=== PATIENT | female | born 1985 | race African-American/Black ===

== ENCOUNTER 2017-05-30 16:26 | Emergency (ER) | payer MEDICAID ==
[~2017-05-30] VITALS: Ht 165.1 cm; Wt 120.0 kg
[~2017-05-30 16:26] MED LIST: PREN-88
[2017-05-30] MEDS ORDERED: CIPROFLOXACIN (16:34)
[2017-05-30] MEDS ORDERED: TETRACAINE 0.5% OPHTH DROPS 4ML OP ONE (19:30)
[2017-05-30] MEDS ORDERED: KETOROLAC 60MG/2ML VIAL IM ONE (19:30)
[2017-05-30] MEDS ORDERED: FLUORESCEIN SODIUM 1MG/STRIP OP ONE (19:30)
[2017-05-30 22:31] VITALS: BP 139/87
== END 2017-05-30 22:34 | disposition home or self-care (01) ==
LOC: ER 16:41
DX: J01.90 Acute sinusitis, unspecified (principal); B99.9 Unspecified infectious disease; H10.89 Other conjunctivitis
CPT/HCPCS: 96372; 99283; J1885; Z7610

== ENCOUNTER 2018-07-10 18:41 | Emergency (ER) | payer MEDICAID ==
[~2018-07-10] VITALS: Ht 172.7 cm; Wt 150.0 kg
[~2018-07-10 18:41] MED LIST changes: +CIPROFLOXACIN
[2018-07-10] MEDS ORDERED: SODIUM CHLORIDE 0.9% 1,000 ML IV ONE (19:42)
[2018-07-10] MEDS ORDERED: KETOROLAC 30MG/ML VIAL IV STA (19:42)
[2018-07-10] MEDS ORDERED: ACETAMINOPHEN 325MG TABLET PO STA (19:42)
[2018-07-10 20:47] LABS: BASOPHILS % 0.4 % (0.0-2.0); EOSINOPHILS % 2.2 % (0.0-5.0); HEMATOCRIT. 44.5 % (36.0-48.0); HEMOGLOBIN. 14.8 g/dL (12.0-16.0); LYMPHOCYTES % 33.3 % (20.0-50.0); MEAN CORPUSCULAR HEMOGLOBIN 27.8 pg (28.0-32.0); MEAN CORPUSCULAR VOLUME 83.5 fL (81.0-99.0); MEAN PLATELET VOLUME 9.4 fl (7.4-10.4); MONOCYTES % 5.6 % (2.0-8.0); NEUTROPHILS % 58.5 % (40.0-76.0); PLATELET 270 x1000/uL (130-400); RED BLOOD CELL COUNT 5.33 mill/uL (4.2-5.4); RED CELL DISTRIBUTION WIDTH 14.4 % (11.6-14.6)
[2018-07-10 20:49] LABS: HCG SCREEN NEGATIVE
[2018-07-10 20:51] LABS: CHLORIDE 100 mEq/L (98-107)
[2018-07-10 20:52] LABS: PROTHROMBIN TIME 10.1 sec (9.1-11.1)
[2018-07-10 21:05] LABS: CLARITY URINE CLEAR (CLEAR); COLOR URINE YELLOW (YELLOW); KETONES URINE NEGATIVE (NEGATIVE); LEUKOCYTE ESTERASE URINE TRACE (NEGATIVE); NITRITE URINE NEGATIVE (NEGATIVE); OCCULT BLOOD URINE TRACE (NEGATIVE); PH URINE 5.5 (4.5-8.0); PROTEIN URINE NEGATIVE (NEGATIVE); UROBILINOGEN URINE 0.2 E.U./dL (0.2-1.0)
[2018-07-10] MEDS ORDERED: PREDNISONE 20MG TABLET PO ONE (23:15)
[2018-07-10] MEDS ORDERED: LEVOFLOXACIN 500MG TABLET PO ONE (23:15)
[2018-07-11 02:01] VITALS: BP 150/73
== END 2018-07-11 03:10 | disposition home or self-care (01) ==
LOC: ER 18:41
DX: J40 Bronchitis, not specified as acute or chronic (principal); N39.0 Urinary tract infection, site not specified; F17.200 Nicotine dependence, unspecified, uncomplicated; R00.0 Tachycardia, unspecified; R03.0 Elevated blood-pressure reading, without diagnosis of hypertension; E66.9 Obesity, unspecified; Z68.43 Body mass index [BMI] 50.0-59.9, adult; Z98.890 Other specified postprocedural states
CPT/HCPCS: 36415; 71045; 80053; 81003; 81025; 83605; 84145; 84484; 84703; 85025; 85610; 87040; 87086; 87804; 93005; 96374; 99284; J1885; J7030; J7512

== ENCOUNTER 2019-05-16 17:16 | Emergency (ER) | payer MEDICAID ==
[~2019-05-16] VITALS: Ht 180.3 cm; Wt 140.0 kg
[2019-05-16] MEDS ORDERED: SODIUM CHLORIDE 0.9% 1,000 ML IV ONE (17:42)
[2019-05-16 18:13] LABS: CLARITY URINE CLEAR (CLEAR); COLOR URINE YELLOW (YELLOW); KETONES URINE NEGATIVE (NEGATIVE); LEUKOCYTE ESTERASE URINE NEGATIVE (NEGATIVE); NITRITE URINE NEGATIVE (NEGATIVE); OCCULT BLOOD URINE 2+ (NEGATIVE); PROTEIN URINE NEGATIVE (NEGATIVE); SPECIFIC GRAVITY URINE 1.013 (1.005-1.030); UROBILINOGEN URINE 0.2 E.U./dL (0.2-1.0)
[2019-05-16 19:03] LABS: BASOPHILS % 0.7 % (0.0-2.0); EOSINOPHILS % 3.2 % (0.0-5.0); HEMATOCRIT. 37.2 % (36.0-48.0); HEMOGLOBIN. 12.2 g/dL (12.0-16.0); LYMPHOCYTES % 38.7 % (20.0-50.0); MEAN CORPUSCULAR HEMOGLOBIN 27.5 pg (28.0-32.0); MEAN CORPUSCULAR VOLUME 83.6 fL (81.0-99.0); MEAN PLATELET VOLUME 9.3 fl (7.4-10.4); MONOCYTES % 6.5 % (2.0-8.0); NEUTROPHILS % 50.9 % (40.0-76.0); PLATELET 278 x1000/uL (130-400); RED BLOOD CELL COUNT 4.45 mill/uL (4.2-5.4); RED CELL DISTRIBUTION WIDTH 14.8 % (11.6-14.6)
[2019-05-16 19:05] LABS: CHLORIDE 105 mEq/L (98-107)
[2019-05-16 19:15] LABS: B-HCG QUANTITATIVE < 1 mIU/mL (<3)
[2019-05-16] MEDS ORDERED: ACETAMINOPHEN WITH CODEINE 300/30MG TABLET PO ONE (19:15)
[2019-05-16 20:23] VITALS: BP 143/72
== END 2019-05-16 20:52 | disposition home or self-care (01) ==
LOC: ER 17:16
DX: N93.8 Other specified abnormal uterine and vaginal bleeding (principal)
CPT/HCPCS: 36415; 76830; 76856; 80053; 81003; 81025; 84702; 85025; 86850; 86900; 86901; 99284; J7030

== ENCOUNTER 2019-09-03 17:58 | Emergency (ER) | payer MEDICAID | END 2019-09-03 19:24 | disposition left against medical advice (07) | LOC: ER 17:58 | DX: Z53.21 Procedure and treatment not carried out due to patient leaving prior to being seen by health care provider (principal) ==

== ENCOUNTER 2019-09-19 03:28 | Emergency (ER) | payer MEDICAID ==
[~2019-09-19] VITALS: Ht 180.3 cm; Wt 137.0 kg
[2019-09-19 05:44] VITALS: BP 125/58
== END 2019-09-19 06:00 | disposition home or self-care (01) ==
LOC: ER 03:51
DX: J18.9 Pneumonia, unspecified organism (principal); R07.89 Other chest pain; F17.290 Nicotine dependence, other tobacco product, uncomplicated; Z98.890 Other specified postprocedural states
CPT/HCPCS: 71045; 82962; 87804; 93005; 99284; Z7610

== ENCOUNTER 2019-09-22 21:12 | Inpatient (IN) | payer MEDICAID ==
[~2019-09-22] VITALS: Ht 180.3 cm; Wt 139.7 kg
[2019-09-22] MEDS ORDERED: ACETAMINOPHEN 325MG TABLET PO STA (23:46)
[2019-09-22] MEDS ORDERED: SODIUM CHLORIDE 0.9% 1,000 ML IV ONE (23:46)
[2019-09-23] MEDS ORDERED: CEFTRIAXONE 1 G PREMIX 50 ML IV ONE
[2019-09-23] MEDS ORDERED: AZITHROMYCIN 500 MG in DEXT 5% WATER 250 ML IV ONE ×2
[2019-09-23 00:17] LABS: BASOPHILS % 0.6 % (0.0-2.0); EOSINOPHILS % 4.5 % (0.0-5.0); HEMATOCRIT. 39.7 % (36.0-48.0); HEMOGLOBIN. 12.8 g/dL (12.0-16.0); LYMPHOCYTES % 62.5 % (20.0-50.0); MEAN CORPUSCULAR HEMOGLOBIN 26.7 pg (28.0-32.0); MEAN CORPUSCULAR VOLUME 82.6 fL (81.0-99.0); MEAN PLATELET VOLUME 9.2 fl (7.4-10.4); MONOCYTES % 7.1 % (2.0-8.0); NEUTROPHILS % 25.3 % (40.0-76.0); PLATELET 243 x1000/uL (130-400); RED BLOOD CELL COUNT 4.81 mill/uL (4.2-5.4); RED CELL DISTRIBUTION WIDTH 13.9 % (11.6-14.6)
[2019-09-23 00:45] LABS: CHLORIDE 106 mEq/L (98-107)
[2019-09-23 01:21] LABS: BG BASE EXCESS 0.9 mmol/L (-2.0-2.0); BG CARBOXYHEMOGLOBIN 1.8 % (0.5-1.5); BG DEOXYHEMOGLOBIN 8.7 % (0.0-5.0); BG FRACTION INSPIRED OXYGEN 21; BG OXYGEN SATURATION 91.1 % (92.0-98.5); BG OXYHEMOGLOBIN 89.5 % (94.0-97.0); BG PCO2 43.4 mmHg (35.0-45.0); BG PH 7.395 (7.350-7.450); BG SAMPLE SITE RIGHT BRACHIAL; BG TOTAL HEMOGLOBIN 12.3 g/dL (12.0-18.0); BG VENT MODE ROOM AIR
[2019-09-23 03:48] LABS: CLARITY URINE CLOUDY (CLEAR); COLOR URINE YELLOW (YELLOW); KETONES URINE NEGATIVE (NEGATIVE); LEUKOCYTE ESTERASE URINE TRACE (NEGATIVE); NITRITE URINE NEGATIVE (NEGATIVE); OCCULT BLOOD URINE 3+ (NEGATIVE); PH URINE 5.5 (4.5-8.0); PROTEIN URINE NEGATIVE (NEGATIVE); SPECIFIC GRAVITY URINE 1.021 (1.005-1.030); UROBILINOGEN URINE 0.2 E.U./dL (0.2-1.0)
[2019-09-23 04:00] LABS: *AMPHETAMINES SCREEN URINE NEGATIVE (NEGATIVE); *BARBITURATES SCREEN URINE NEGATIVE (NEGATIVE); *BENZODIAZEPINES SCREEN URINE NEGATIVE (NEGATIVE); *COCAINE SCREEN URINE NEGATIVE (NEGATIVE)
[2019-09-23 04:01] LABS: CANNABINOID URINE SCREEN NEGATIVE (NEGATIVE); METHADONE URINE SCREEN NEGATIVE (NEGATIVE); OPIATES URINE SCREEN NEGATIVE (NEGATIVE); PHENCYCLIDINE URINE SCREEN NEGATIVE (NEGATIVE)
[2019-09-23] MEDS ORDERED: LORAZEPAM 0.5MG TABLET PO PRN (09:00)
[2019-09-23] MEDS ORDERED: ONDANSETRON HCL 4MG/2ML INJ IV PRN (09:00)
[2019-09-23] MEDS ORDERED: AZITHROMYCIN 500 MG in DEXT 5% WATER 250 ML IV SCH (09:00)
[2019-09-23] MEDS ORDERED: CEFTRIAXONE 1 G PREMIX 50 ML IV SCH (09:00)
[2019-09-23] MEDS ORDERED: CLONIDINE 0.1MG TABLET PO PRN (09:00)
[2019-09-23] MEDS ORDERED: DOCUSATE SODIUM 100MG CAPSULE PO PRN (09:00)
[2019-09-23] MEDS ORDERED: GUAIFENESIN 200MG/10ML SUGAR FREE UDC PO PRN (09:00)
[2019-09-23] MEDS ORDERED: ACETAMINOPHEN 325MG TABLET PO PRN (09:00)
[2019-09-23] MEDS: SODIUM CHLORIDE 0.9% 1,000 ML IV SCH (16:38)
[2019-09-23] MEDS: LISINOPRIL 5MG TABLET PO SCH (17:10)
[2019-09-23 17:20] LABS: HCG SCREEN NEGATIVE
[2019-09-23 22:00] VITALS: BP 148/77
[2019-09-23] MEDS: HYDROCODONE/ACETAMINOPHEN 5/325MG TABLET PO PRN (22:12)
[2019-09-23] MEDS: IPRATROPIUM/ALBUTEROL 0.5-3(2.5)MG/3ML NEB HHN PRN (22:38)
[2019-09-24] VITALS: BP 148/77
[2019-09-24] MEDS: SODIUM CHLORIDE 0.9% 1,000 ML IV SCH ×2 (00:29→12:15)
[2019-09-24] MEDS: CEFTRIAXONE 1 G PREMIX 50 ML IV SCH ×2 (00:29→23:43)
[2019-09-24] MEDS: AZITHROMYCIN 500 MG in DEXT 5% WATER 250 ML IV SCH (01:36)
[2019-09-24 04:00] VITALS: BP 122/66
[2019-09-24 07:31] LABS: BASOPHILS % 0.3 % (0.0-2.0); EOSINOPHILS % 3.5 % (0.0-5.0); HEMATOCRIT. 36.8 % (36.0-48.0); HEMOGLOBIN. 12.2 g/dL (12.0-16.0); LYMPHOCYTES % 60.9 % (20.0-50.0); MEAN CORPUSCULAR HEMOGLOBIN 27.5 pg (28.0-32.0); MEAN CORPUSCULAR VOLUME 82.7 fL (81.0-99.0); MEAN PLATELET VOLUME 9.7 fl (7.4-10.4); NEUTROPHILS % 27.3 % (40.0-76.0); PLATELET 206 x1000/uL (130-400); RED BLOOD CELL COUNT 4.45 mill/uL (4.2-5.4); RED CELL DISTRIBUTION WIDTH 13.8 % (11.6-14.6)
[2019-09-24 07:47] LABS: CHLORIDE 108 mEq/L (98-107)
[2019-09-24 08:00] VITALS: BP 157/79
[2019-09-24] MEDS ORDERED: PNEUMOCOCCAL 23-VAL P-SAC VAC 0.5 ML IM ONE (08:00)
[2019-09-24] MEDS: IPRATROPIUM/ALBUTEROL 0.5-3(2.5)MG/3ML NEB HHN PRN ×2 (08:54→16:56)
[2019-09-24] MEDS: LISINOPRIL 5MG TABLET PO SCH (08:54)
[2019-09-24] MEDS: HYDROCODONE/ACETAMINOPHEN 5/325MG TABLET PO PRN ×2 (08:55→20:27)
[2019-09-24 12:00] VITALS: BP 140/82
[2019-09-24 16:00] VITALS: BP 144/73
[2019-09-24] MEDS ORDERED: DEXTROSE 50% WATER 50ML SYRINGE IV PRN (17:45)
[2019-09-24] MEDS: INSULIN LISPRO 100 UNITS/ML SUBCUT SCH ×2 (18:18→21:26)
[2019-09-24 20:00] VITALS: BP 129/58
[2019-09-24] MEDS: BLOOD SUGAR DIAGNOSTIC STRIP TEST SCH (21:20)
[2019-09-25] VITALS: BP 113/63
[2019-09-25] MEDS: AZITHROMYCIN 500 MG in DEXT 5% WATER 250 ML IV SCH (01:48)
[2019-09-25] MEDS: SODIUM CHLORIDE 0.9% 1,000 ML IV SCH ×2 (01:49→07:54)
[2019-09-25 04:00] VITALS: BP 152/71
[2019-09-25] MEDS: BLOOD SUGAR DIAGNOSTIC STRIP TEST SCH ×4 (06:46→21:16)
[2019-09-25 06:53] LABS: CHLORIDE 108 mEq/L (98-107)
[2019-09-25] MEDS: LISINOPRIL 5MG TABLET PO SCH (07:50)
[2019-09-25] MEDS: INSULIN LISPRO 100 UNITS/ML SUBCUT SCH ×4 (07:53→21:16)
[2019-09-25 08:00] VITALS: BP 146/73
[2019-09-25] MEDS: IPRATROPIUM/ALBUTEROL 0.5-3(2.5)MG/3ML NEB HHN PRN (09:32)
[2019-09-25 10:11] LABS: BASOPHILS % 0.3 % (0.0-2.0); EOSINOPHILS % 2.6 % (0.0-5.0); HEMATOCRIT. 39.5 % (36.0-48.0); HEMOGLOBIN. 13.5 g/dL (12.0-16.0); LYMPHOCYTES % 47.8 % (20.0-50.0); MEAN CORPUSCULAR HEMOGLOBIN 28.2 pg (28.0-32.0); MEAN PLATELET VOLUME 9.1 fl (7.4-10.4); MONOCYTES % 7.9 % (2.0-8.0); NEUTROPHILS % 41.4 % (40.0-76.0); PLATELET 234 x1000/uL (130-400); RED BLOOD CELL COUNT 4.76 mill/uL (4.2-5.4); RED CELL DISTRIBUTION WIDTH 13.7 % (11.6-14.6)
[2019-09-25] MEDS: HYDROCODONE/ACETAMINOPHEN 5/325MG TABLET PO PRN (10:11)
[2019-09-25 12:00] VITALS: BP 147/84
[2019-09-25] MEDS ORDERED: IPRATROPIUM/ALBUTEROL 0.5-3(2.5)MG/3ML NEB HHN PRN (15:45)
[2019-09-25 16:00] VITALS: BP 151/78
[2019-09-25] MEDS: LORATADINE 10MG TABLET PO SCH (16:50)
[2019-09-25] MEDS ORDERED: MONTELUKAST SODIUM 10MG TABLET PO SCH (17:00)
[2019-09-25] MEDS ORDERED: BUDESONIDE 0.5MG/2ML NEB HHN SCH (18:00)
[2019-09-25 20:00] VITALS: BP 137/76
[2019-09-25] MEDS: FLUTICASONE PROPIONATE 50MCG/SPRAY BOTTLE BOTHNSTRLS SCH (20:39)
[2019-09-25] MEDS: FAMOTIDINE 20MG TABLET PO SCH (20:39)
[2019-09-25] MEDS: IPRATROPIUM/ALBUTEROL 0.5-3(2.5)MG/3ML NEB HHN SCH (20:55)
[2019-09-26] VITALS: BP 121/58
[2019-09-26] MEDS: CEFTRIAXONE 1 G PREMIX 50 ML IV SCH (00:34)
[2019-09-26] MEDS: IPRATROPIUM/ALBUTEROL 0.5-3(2.5)MG/3ML NEB HHN SCH ×2 (01:35→08:30)
[2019-09-26] MEDS: AZITHROMYCIN 500 MG in DEXT 5% WATER 250 ML IV SCH (02:15)
[2019-09-26 04:00] VITALS: BP 123/66
[2019-09-26] MEDS: SODIUM CHLORIDE 0.9% 1,000 ML IV SCH (05:40)
[2019-09-26 06:37] LABS: BASOPHILS % 0.2 % (0.0-2.0); EOSINOPHILS % 2.6 % (0.0-5.0); HEMATOCRIT. 36.4 % (36.0-48.0); HEMOGLOBIN. 12.5 g/dL (12.0-16.0); LYMPHOCYTES % 46.7 % (20.0-50.0); MEAN CORPUSCULAR HEMOGLOBIN 28.3 pg (28.0-32.0); MEAN CORPUSCULAR VOLUME 82.3 fL (81.0-99.0); MEAN PLATELET VOLUME 8.8 fl (7.4-10.4); NEUTROPHILS % 42.5 % (40.0-76.0); PLATELET 230 x1000/uL (130-400); RED BLOOD CELL COUNT 4.42 mill/uL (4.2-5.4); RED CELL DISTRIBUTION WIDTH 13.7 % (11.6-14.6)
[2019-09-26 06:40] LABS: CHLORIDE 107 mEq/L (98-107)
[2019-09-26] MEDS: BLOOD SUGAR DIAGNOSTIC STRIP TEST SCH (07:33)
[2019-09-26] MEDS: INSULIN LISPRO 100 UNITS/ML SUBCUT SCH (07:35)
[2019-09-26 08:00] VITALS: BP 119/74
[2019-09-26] MEDS: FAMOTIDINE 20MG TABLET PO SCH (08:53)
[2019-09-26] MEDS: LORATADINE 10MG TABLET PO SCH (08:53)
[2019-09-26] MEDS: LISINOPRIL 5MG TABLET PO SCH (08:53)
[2019-09-26] MEDS: FLUTICASONE PROPIONATE 50MCG/SPRAY BOTTLE BOTHNSTRLS SCH (08:53)
[2019-09-26 12:00] VITALS: BP_SYST 116; BP_SYST 122; BP_DIAS 79; BP_DIAS 83
== END 2019-09-26 12:41 | disposition home or self-care (01) | DRG 139 ==
LOC: ER 21:12 → 6EST 09-23 02:57 → EDBEDREQSVC 09-23 03:01 → EDBEDREQDT 09-23 03:01 → EDBEDREQTM 09-23 03:01 → EDBEDREQ 09-23 03:01 → ENRESERV 09-23 20:33 → EDBEDREQTM 09-23 20:57 → EDBEDREQSVC 09-23 20:57 → ENRESERV 09-23 21:03
PROVIDERS: ADMIT Internal Medicine; ATTEND Internal Medicine
DX: J18.9 Pneumonia, unspecified organism (principal); J96.01 Acute respiratory failure with hypoxia; Z68.41 Body mass index [BMI] 40.0-44.9, adult; E11.9 Type 2 diabetes mellitus without complications; D72.820 Lymphocytosis (symptomatic); F17.210 Nicotine dependence, cigarettes, uncomplicated; R31.9 Hematuria, unspecified; R82.71 Bacteriuria; J40 Bronchitis, not specified as acute or chronic; J06.9 Acute upper respiratory infection, unspecified; E66.9 Obesity, unspecified; I10 Essential (primary) hypertension; Z98.891 History of uterine scar from previous surgery; Z82.5 Family history of asthma and other chronic lower respiratory diseases; Z87.01 Personal history of pneumonia (recurrent)
CPT/HCPCS: 36415; 36600; 71045; 80048; 80053; 80305; 81003; 81025; 82375; 82805; 82962; 83036; 83605; 83880; 84145; 84484; 84703; 85025; 90732; 93005; 94640; 96361; 96365; 96367; 99285; J0456; J0696; J1815; J7030; J7060; J7626